=== PATIENT | male | born 1970 | race Caucasian/White ===

== ENCOUNTER → 2017-11-18 08:54 | Outpatient (CLI) | payer SELFPAY ==
[2017-11-18 11:01] LABS: Cholesterol 154 mg/dL (200); Glucose 78 mg/dL (74-106); High Density Lipoprotein 45 mg/dL; Triglycerides 55 mg/dL; Very Low Density Lipoprotein 11 mg/dL (5-40)
== END ==
PROVIDERS: Family Provider Family Medicine; PCP Family Medicine; Visit Provider Family Medicine
DX: Z00.00 Encounter for general adult medical examination without abnormal findings (principal)
CPT/HCPCS: 36415; 80061; 80076; 82947

== ENCOUNTER → 2017-11-18 08:58 | Outpatient (CLI) | payer SELFPAY ==
[2017-11-18 11:05] LABS: AST(SGOT) 17 U/L (15-37); Alanine Aminotransfer ALT/SGPT 20 U/L (16-61); Albumin, Serum 3.6 g/dL (3.2-5.0); Alkaline Phosphatase 73 U/L (45-117); Bilirubin, Direct 0.17 mg/dL (0.00-0.30); Globulin 4.5 g/dL (2.2-4.2); Protein, Total 8.1 g/dL (6.4-8.2)
== END ==
PROVIDERS: Nurse Practitioner Family; Family Provider Family Medicine; PCP Family Medicine; Visit Provider Internal Medicine Cardiovascular Disease
DX: Z00.00 Encounter for general adult medical examination without abnormal findings (principal)
CPT/HCPCS: 36415; 80076

== ENCOUNTER → 2017-12-06 09:26 | Outpatient (CLI) | payer SELFPAY ==
[2017-12-06 11:42] LABS: Cholesterol 144 mg/dL (200); Glucose 78 mg/dL (74-106); High Density Lipoprotein 55 mg/dL; Triglycerides 42 mg/dL; Very Low Density Lipoprotein 8 mg/dL (5-40)
== END ==
PROVIDERS: Family Provider Family Medicine; PCP Family Medicine; Visit Provider Family Medicine
DX: Z00.00 Encounter for general adult medical examination without abnormal findings (principal)
CPT/HCPCS: 80061; 82947

== ENCOUNTER 2023-05-08 22:37 | Observation (INO) | payer OTHER, SELFPAY ==
[2023-05-08 22:38] VITALS: BP 178/91; PULSE 78; RESP 19; TEMP 36.5; O2SAT 100; BMI 32.1
--- NOTE | 2023-05-08 22:48 | CT_ITS ---
INDICATION: pain EXAMINATION: CT ABDOMEN AND PELVIS WITH CONTRAST - CT Abdomen And Pelvis W/ Contrast Injection TECHNIQUE: Helically acquired images were obtained of the abdomen and pelvis following IV contrast. A radiation dose optimization technique was used for this scan. IV Contrast dosage and agent: 100 cc [id number]-300 Oral contrast: None. COMPARISON: None. FINDINGS: Basilar atelectasis or scarring. Mild periportal edema which could be secondary to hydration. There is gallbladder thickening, non-specific. Splenic granulomas. Pancreas, adrenal glands and kidneys show no acute abnormality. No hydronephrosis. No ureteral stone. No bladder stone. Prostate size is normal. Colon is collapsed. No obvious inflammatory change. Appendix normal. Nonspecific small bowel fluid without obstruction. No aortic aneurysmal dilatation is present. Normal appearing stomach. Small nonspecific retroperitoneal nodes do not meet pathologic size criteria. No acute bony pathology is appreciated. CT/Abdomen/Pelvis W IV Cont ONLY IMPRESSION: Nonspecific gallbladder wall thickening and periportal edema. Consider gallbladder ultrasound. No significant abnormality detected otherwise. Electronically Signed: Luisito Blanchard MD at 23:34 EDT ,
--- NOTE | 2023-05-08 22:51 | EX.ED.DYSGE1 ---
HPI History of Present Illness Chief Complaint: Abd Pain Narrative Narrative: Patient presents with a few hour history of epigastric pain, it is somewhat colicky and at times severe. He does not have a prior history of this other than in the past week he has had few episodes that are similar that resolved after 30 minutes. He has no prior surgery on his abdomen. No recent fevers or chills. No diarrhea no constipation. He has some nausea but no vomiting. PFSH [facility] Medical History (Updated 05/09/23 @ 00:[address] Theodore Catalan MD) Angina pectoris Atherosclerotic heart disease of [place] coronary artery without angina pectoris CAD (coronary artery disease) Family history of early CAD Hyperlipidemia clinical rn use of drug Obesity (BMI 30.0-34.9) Home Medications aspirin 81 mg chewable tablet 81 mg PO DAILY@0800 ##30 05/05/17 [Rx Last Taken Unknown] nitroglycerin 0.4 mg sublingual tablet 0.4 mg sublingual Q5M PRN Chest Pain #30 tabs 05/05/17 [Rx Last Taken Unknown] Allergy/AdvReac Type Severity Reaction Status Date / Time No Known Allergies Allergy Verified 05/08/23 22:38 Family History Mother CAD (coronary artery disease) S/P CABG x 3, Onset Age: 47 History of coronary artery stent placement multiple Grandfather , Age 54 of [place], first [place] age 42 CAD (coronary artery disease) Myocardial infarction Other Heart disease Surgical History History of left heart catheterization Social History (Updated 12/13/17 @ 12:[address] Joe Zimmerman MD) Smoking Status: Never smoker ROS ROS ED ROS Narrative Past medical history: None Medications: None Review of systems: All systems negative except as indicated General: No fever Eyes: No visual changes ENT: No upper airway congestion, normal voice Neck: No neck pain Cardiovascular: No chest pain Respiratory: No shortness of breath or cough Gastrointestinal: Abdominal pain as in HPI Genitourinary: No dysuria Musculoskeletal: Denies myalgias no difficulty with ambulation Skin: No rash Neurological: No memory loss, confusion or any focal weakness EXAM Physical Exam Narrative Exam Narrative: Physical exam General: Patient appears in distress Head: Normocephalic, Atraumatic Eyes: Conjunctiva not pale ENT: Slightly dry mucous membranes Neck: Supple, Nontender, No lymphadenopathy Cardiovascular: Regular rate, Regular rhythm Respiratory: No distress, CTA bilaterally Abdomen: Soft, mostly epigastric tenderness without any guarding or rebound. No significant right upper quadrant pain and negative Espinoza's. No significant lower abdominal pain [facility]: Nontender, Normal Inspection. Negative for: CVA tenderness Extremities: Nontender, No edema Skin: Normal color, No rash Const Vital Signs: 05/08/23 22:38 05/08/23 23:37 Temperature 97.7 F L Temperature Source Oral Pulse Rate 78 71 Respiratory Rate 19 H 11 L Blood Pressure 178/91 H 166/100 H Blood Pressure Mean 120 122 Pulse Ox 100 96 Oxygen Delivery Method Room Air MDM MDM MDM Narrative Medical decision making narrative: EKG: Sinus rhythm with a rate of 71. Normal [place] and QTc intervals. No ischemic changes. Interpreted by emergency doctor Telemetry: Sinus rhythm with a rate in the 70s without ectopy. Patient has an unremarkable blood work and LFTs. However he does have pain in the epigastrium and right upper quadrant. He did have colicky pain. He needed IV analgesics. CT of the abdomen and pelvis with IV contrast reveals gallbladder wall thickening and some inflammatory changes. My worry is for possible early cholecystitis. I talked to the surgeon who will observe him overnight and get an ultrasound since its midnight and I do not have ultrasound coverage. Otherwise patient has been stable, slightly hypertensive but he is still in pain although he does not require analgesia at this time. Lab Data Labs: Laboratory Results - last 24 hr 05/08/23 23:00 WBC 7.0 RBC 5.01 Hgb 14.8 Hct 43.5 MCV 86.8 MCH 29.5 MCHC 34.0 RDW Std Deviation 41.4 RDW Coeff of Alysia 13.2 Plt Count 123 L MPV 10.8 Immature Gran % (Auto) 0.300 Neut % (Auto) 74.1 H Lymph % (Auto) 17.6 L [place] % (Auto) 7.2 Eos % (Auto) 0.7 Baso % (Auto) 0.1 Absolute Neuts (auto) 5.2 Absolute Lymphs (auto) 1.23 Nucleated RBC % 0 Sodium 140 Potassium 3.4 L Chloride 109 H Carbon Dioxide 24.0 Anion Gap 7 BUN 17 Creatinine 1.29 Estim Creat Clear Calc 65.46 Est GFR (MDRD) Af Amer 75 Est GFR (MDRD) Non-Af 62 BUN/Creatinine Ratio 13.2 Glucose 132 H Calcium 8.5 Total Bilirubin 0.60 AST 21 ALT 21 Alkaline Phosphatase 65 Total Protein 7.5 Albumin 3.6 Globulin 3.9 Albumin/Globulin Ratio 0.9 Lipase 25 Radiography Diagnostic Testing: Clinical Impression(s) from Imaging Studies Abdomen/Pelvis CT 05/08/23 22:48 IMPRESSION: Nonspecific gallbladder wall thickening and periportal edema. Consider gallbladder ultrasound. No significant abnormality detected otherwise. Electronically Signed: Luisito Blanchard MD at 23:34 EDT , Discharge Plan Triage Chief Complaint: Abd Pain ED Provider: Theodore Catalan Dx/Rx/DC Orders Clinical Impression: Abdominal pain, Nausea, Disease of gallbladder Prescriptions: No Action nitroglycerin 0.4 MG tablet 0.4 mg SUBLINGUAL Q5M PRN (Reason: Chest Pain) Qty: 30 0RF aspirin 81 MG tablet,chewable 81 mg PO DAILY@0800 Qty: 30 0RF Primary Care Provider: Jonathon Nieves Referrals: Henry Noriega MD [Non-Staff] -
[2023-05-08] MEDS: Ondansetron 4 MG/2 ML Vial IV (22:52)
[2023-05-08] MEDS: 0.9% Normal Saline 1,000 ML 1000 ML IV (22:57)
[2023-05-08] MEDS: Morphine 4 MG/ML Syringe IV (22:57)
[2023-05-08 23:19] LABS: Absolute Lymphocyte Count 1.23 X10^3/uL (0.83-4.51); Absolute Neutrophil Count 5.2 X10^3/uL (2.0-7.7); Basophil# 0.01 X10^3/uL; Basophil% 0.1 % (0-1); Eosinophil# 0.05 X10^3/uL; Eosinophils% 0.7 % (0-5); Hematocrit 43.5 % (40-54); Hemoglobin 14.8 g/dL (13.0-16.5); Lymphocyte # 1.23 X10^3/ul (0.83-4.51); Lymphocyte % 17.6 % (19-41); Mean Corpuscular Hgb 29.5 pg (27.0-32.0); Mean Corpuscular Volume 86.8 fL (80-94); Mean Platelet Vol. 10.8 fl (6.2-12.0); Monocyte% 7.2 % (0-10); NRBC Flagged by Analyzer 0 % (0-5); Neutrophil # 5.18 X10^3/uL (2.7-7.7); Neutrophil % 74.1 % (47-70); Platelet Count 123 K/mm3 (150-450); RBC Distribution Width CV 13.2 % (11.6-14.6); RBC Distribution Width SD 41.4 fl (35.1-43.9); Red Blood Count 5.01 M/mm3 (4.6-6.2)
[2023-05-08 23:37] VITALS: BP 166/100; PULSE 71; RESP 11; O2SAT 96
[2023-05-08 23:44] LABS: ALB/GLOB Ratio 0.9 RATIO (0.9-2.4); AST(SGOT) 21 U/L (15-37); Alanine Aminotransfer ALT/SGPT 21 U/L (16-61); Albumin, Serum 3.6 g/dL (3.2-5.0); Alkaline Phosphatase 65 U/L (45-117); Anion Gap 7 (5-15); BUN 17 mg/dL (7-18); BUN/Creat Ratio 13.2 RATIO (10-20); Calcium,Total 8.5 mg/dL (8.5-10.1); Chloride 109 mmol/L (98-107); Creatinine, Serum 1.29 mg/dL (0.70-1.30); EST Glomerular Filtration Rate 62 mL/min (>60); Est Glom Filt Rate - Afr Amer 75 mL/min (>60); Estimated Creatinine Clearance 65.46 ml/min; Globulin 3.9 g/dL (2.2-4.2); Glucose 132 mg/dL (74-106); Lipase 25 U/L (13-75); Potassium 3.4 mmol/L (3.5-5.1); Protein, Total 7.5 g/dL (6.4-8.2); Sodium Level 140 mmol/L (136-145)
[2023-05-08 23:56] LABS: Bacteria 0 SEEN /hpf (None Seen); Mucous, Urine 0 SEEN /hpf (<or=2+); Red Blood Cells-Urine 0 SEEN /hpf (0-5); Squamous Epithelial Cells - UA 0 SEEN /hpf (0-5); White Blood Cells 0 SEEN /hpf (0-5)
[2023-05-09 00:06] LABS: Color, Urine Yellow (Yellow); Glucose, Dipstick Normal (Normal); Ketone-Dipstick Negative (Negative); Leukocyte Esterase-Dipstick Negative /ul (Negative); Nitrite-Dipstick Negative (Negative); Occult Blood-Urine Negative /ul (Negative); Protein-Dipstick 30 mg/dl (Negative); Specific Gravity, Urine 1.015 (1.002-1.030); Urine Bilirubin Dipstick Negative (Negative); Urine Clarity Clear (Clear); Urine Urobilinogen Normal (Normal); Urine pH 6.5 (5.0 - 8.0)
[2023-05-09 00:29] VITALS: BP 155/92; PULSE 72; RESP 20; TEMP 36.4; O2SAT 96
[2023-05-09 00:50] VITALS: BP 159/98; PULSE 77; RESP 16; TEMP 36.6; O2SAT 97; BMI 31.6
[2023-05-09] MEDS: 0.9% Normal Saline 1,000 ML 125 ML IV ×2 (01:16→09:48)
[2023-05-09 05:09] VITALS: BP 127/84; PULSE 63; RESP 16; TEMP 36.6; O2SAT 96
--- NOTE | 2023-05-09 07:00 | US_ITS ---
INDICATION: Right upper quadrant pain EXAMINATION: Ultrasound US Abdomen Limited (quadrant) TECHNIQUE: Gaming scale and color doppler imaging was performed of the right upper quadrant. COMPARISON: CT scan of the abdomen and pelvis of 05/08/2023. FINDINGS: LIVER: There is normal echotexture. Patent portal vein with normal hepatopedal flow. No focal hepatic lesion. There is no free fluid. GALLBLADDER AND BILIARY TREE: No evidence of gallstones. Focal thickening of the anterior wall of the gallbladder measuring up to 7 mm. Mild sludge seen in the gallbladder. The proximal common bile duct measures 3.7, which is within normal limits for the patient''s age. Sonographic Espinoza''s sign: Negative. PANCREAS: No focal abnormality is demonstrated in the pancreas. No pancreatic ductal dilatation. RIGHT KIDNEY: The right kidney measures 10.4 cm in length. The cortex measures 1.2 cm. No evidence of hydronephrosis. US/Gallbladder IMPRESSION: Thickening of the gallbladder wall without evidence of gallstones or biliary dilatation. Nuclear medicine biliary scan might be of value if clinically indicated. Electronically Signed: Danilo Kapoor MD at 10:12 EDT ,
--- NOTE | 2023-05-09 08:35 | PCM.HP.STD ---
HPI - General General Date of Admission: 05/09/23 Date of Service: 05/09/23 Chief Complaint: Right upper quadrant abdominal pain HPI Narrative JAMARCUS CAREY, is a 52 M who presents with a 1 day history onset of upper abdominal pain, worse in the right upper quadrant into his back. Patient notes he has had 2 other previous gallbladder attack within the last 2 weeks. Patient states he is unable to recall what type of a meal he had prior to these attacks. He notes that the pain was approximately 1 hour after eating. He states that each attack has progressively become worse. He noted this recent episode demonstrated the worse discomfort/pain. He stated he had nausea associated with the pain. Patient had a CT scan of the ab/pel in the ED which demonstrated gallbladder wall thickening and periportal edema. Gallbladder ultrasound is being recommended. Patient's labs were remarkable for potassium of 3.4 yesterday. Patient also notes a history of angina. He has followed with Dr. Key in the past. He had a cardiac cath in 2017 which demonstrated 50% stenosis of prox LAD. His last visit with cardiology was in 2018. At that time the patient was recommended to be seen on an as needed basis as the patient had made some lifestyle changes. Patient does take an 81 mg aspirin. Patient denies any recent chest pain. He states his current symptoms are not similar to the angina he had previously. 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 Obesity (BMI 30.0-34.9) Home Medications aspirin 81 mg chewable tablet 81 mg PO DAILY@0800 ##30 05/05/17 [Rx Last Taken Unknown] nitroglycerin 0.4 mg sublingual tablet 0.4 mg sublingual Q5M PRN Chest Pain #30 tabs 05/05/17 [Rx Last Taken Unknown] Allergy/AdvReac Type Severity Reaction Status Date / Time No Known Allergies Allergy Verified 05/08/23 22:38 Family History Mother CAD (coronary artery disease) S/P CABG x 3, Onset Age: 47 History of coronary artery stent placement multiple Grandfather , Age 54 of [place], first [place] age 42 CAD (coronary artery disease) Myocardial infarction Other Heart disease Surgical History History of left heart catheterization Social History (Updated 12/13/17 @ 12:[address] Joe Zimmerman MD) Smoking Status: Never smoker ROS Constitutional Constitutional: Reports change in weight Eyes Eyes: Reports systems reviewed and no addt'l complaints, except as documented ENT HEENT: Reports systems reviewed and no addt'l complaints, except as documented Cardiovascular Cardiovascular: Reports systems reviewed and no addt'l complaints, except as documented Respiratory/Chest Respiratory/Chest: Reports systems reviewed and no addt'l complaints, except as documented Gastrointestinal Gastrointestinal: Reports systems reviewed and no addt'l complaints, except as documented Genitourinary Genitourinary: Reports systems reviewed and no addt'l complaints, except as documented Musculoskeletal Musculoskeletal: Reports systems reviewed and no addt'l complaints, except as documented Integumentary Integumentary: Reports systems reviewed and no addt'l complaints, except as documented Neurologic Neurologic: Reports systems reviewed and no addt'l complaints, except as documented Psychiatric Psychiatric: Reports systems reviewed and no addt'l complaints, except as documented Endocrine Endocrinology: Reports systems reviewed and no addt'l complaints, except as documented Hematologic/Lymphatic Hematologic/Lymphatic: Reports systems reviewed and no addt'l complaints, except as documented Allergic/Immunologic Allergic/Immunologic: Reports systems reviewed and no addt'l complaints, except as documented Vital Signs Vital Signs Vital Signs: 05/08/23 22:38 05/08/23 23:37 05/09/23 00:29 Temperature 97.7 F L 97.6 F L Temperature Source Oral Temporal Pulse Rate 78 71 72 Respiratory Rate 19 H 11 L 20 H Respiratory Effort Respiratory Depth Respiratory Pattern Blood Pressure 178/91 H 166/100 H 155/92 H Blood Pressure Mean 120 122 113 Blood Pressure Source Blood Pressure Position Blood Pressure Location Pulse Ox 100 96 96 Oxygen Delivery Method Room Air Room Air 05/09/23 00:50 05/09/23 01:00 05/09/23 05:09 Temperature 97.8 F 97.8 F Temperature Source Temporal Temporal Pulse Rate 77 63 Respiratory Rate 16 16 Respiratory Effort Normal Non-Labored Respiratory Depth Normal Respiratory Pattern Normal Blood Pressure 159/98 H 127/84 H Blood Pressure Mean 118 98 Blood Pressure Source Monitor Monitor Blood Pressure Position Semi-Fowlers Semi-Fowlers Blood Pressure Location Right Forearm Right Forearm Pulse Ox 97 96 Oxygen Delivery Method Room Air Room Air Room Air Weight Weight: 214 lb 1.6 oz Body Mass Index (BMI) 31.6 Physical Exam Const alert, oriented x3 and no apparent distress HEENT normocephalic Eyes PERRL Neck full ROM Lymph Lymphatic: no lymphadenopathy noted Chest inspection of chest normal Resp normal respiratory effort and clear to auscultation bilaterally Cardio regular rate and regular rhythm GI normal to inspection, nondistended, normoactive bowel sounds no CVA tenderness Back/Spine no CVA tenderness Extremity normal to inspection Skin no rashes or lesions noted Neuro no focal motor deficits and no sensory deficits noted Psych mental status grossly normal and thought process normal Results Lab / Micro Data 05/08/23 23:00 05/08/23 23:00 Labs: Laboratory Results - last 24 hr 05/08/23 23:00: WBC 7.0, RBC 5.01, Hgb 14.8, Hct 43.5, MCV 86.8, MCH 29.5, MCHC 34.0, RDW Std Deviation 41.4, RDW Coeff of Alysia 13.2, Plt Count 123 L, MPV 10.8, Immature Gran % (Auto) 0.300, Neut % (Auto) 74.1 H, Lymph % (Auto) 17.6 L, [place] % (Auto) 7.2, Eos % (Auto) 0.7, Baso % (Auto) 0.1, Absolute Neuts (auto) 5.2, Absolute Lymphs (auto) 1.23, Nucleated RBC % 0, Sodium 140, Potassium 3.4 L, Chloride 109 H, Carbon Dioxide 24.0, Anion Gap 7, BUN 17, Creatinine 1.29, Estim Creat Clear Calc 65.46, Est GFR (MDRD) Af Amer 75, Est GFR (MDRD) Non-Af 62, BUN/Creatinine Ratio 13.2, Glucose 132 H, Calcium 8.5, Total Bilirubin 0.60, AST 21, ALT 21, Alkaline Phosphatase 65, Total Protein 7.5, Albumin 3.6, Globulin 3.9, Albumin/Globulin Ratio 0.9, Lipase 25 05/08/23 23:40: Urine Color Yellow, Urine Clarity Clear, Urine pH 6.5, Ur Specific [place] 1.015, Urine Protein 30 H, Urine Glucose (UA) Normal, Urine Ketones Negative, Urine Occult Blood Negative, Urine Nitrite Negative, Urine Bilirubin Negative, Urine Urobilinogen Normal, Ur Leukocyte Esterase Negative, Urine RBC 0 SEEN, Urine WBC 0 SEEN, Ur Squamous Epith Cells 0 SEEN, Urine Bacteria 0 SEEN, Urine Mucus 0 SEEN Radiology Impression Abdomen/Pelvis CT 05/08/23 22:48 IMPRESSION: Nonspecific gallbladder wall thickening and periportal edema. Consider gallbladder ultrasound. No significant abnormality detected otherwise. Electronically Signed: Luisito Blanchard MD at 23:34 EDT , Assessment & Plan Assessment/Plan (1) Abdominal pain: QUALIFIERS: Abdominal location: right upper quadrant Qualified Code(s): R10.11 - Right upper quadrant pain PLAN: I am seeing this patient in conjunction with Dr. Cardenas. I have reviewed this patient with Dr. Cardenas and he has independently evaluated this patient. Patient presented with right upper quadrant pain radiating into his back. CT scan of the ab/pel shows nonspecific gallbladder wall thickening. Patient's presenting symptoms are consistent with biliary colic. Recommend obtaining a RUQ u/s today to determine acute cholecystitis vs. chronic cholecystitis. Also if the patient has cholelithiasis. Patient's lab work is unremarkable at this time. Following results of the ultrasound, will determine if the patient will have a cholecystectomy during this hospitalization versus as an outpatient. Patient has had the opportunity to ask and have questions answered. Patient verbally understands and agrees with the plan. Thank you for allowing us to participate in this patient's care. Charges/Coding Visit Charges OBSV E&M: 04431 Observ/hosp same date L1
[2023-05-09] MEDS: Potassium Chloride 10mEq/100mL 10 MEQ/100 ML IV.SOLN. 100 MEQ IV BOLUS ×2 (09:44→11:08)
[2023-05-09 09:50] VITALS: BP 131/80; PULSE 62; RESP 18; TEMP 36.9; O2SAT 97
[2023-05-09 10:15] LABS: Absolute Lymphocyte Count 1.04 X10^3/uL (0.83-4.51); Absolute Neutrophil Count 2.6 X10^3/uL (2.0-7.7); Eosinophil# 0.02 X10^3/uL; Eosinophils% 0.5 % (0-5); Hematocrit 43.1 % (40-54); Hemoglobin 14.2 g/dL (13.0-16.5); Lymphocyte # 1.04 X10^3/ul (0.83-4.51); Lymphocyte % 25.3 % (19-41); Mean Corp Hgb Conc 32.9 g/dL (32-36); Mean Corpuscular Hgb 29.4 pg (27.0-32.0); Mean Corpuscular Volume 89.2 fL (80-94); Mean Platelet Vol. 10.8 fl (6.2-12.0); Monocyte# 0.44 X10^3/uL; Monocyte% 10.7 % (0-10); NRBC Flagged by Analyzer 0 % (0-5); Neutrophil % 63.3 % (47-70); Platelet Count 112 K/mm3 (150-450); RBC Distribution Width CV 13.5 % (11.6-14.6); RBC Distribution Width SD 44.3 fl (35.1-43.9); Red Blood Count 4.83 M/mm3 (4.6-6.2); White Blood Count 4.1 K/mm3 (4.4-11.0)
[2023-05-09 11:16] LABS: ALB/GLOB Ratio 0.9 RATIO (0.9-2.4); AST(SGOT) 177 U/L (15-37); Alanine Aminotransfer ALT/SGPT 194 U/L (16-61); Albumin, Serum 3.2 g/dL (3.2-5.0); Alkaline Phosphatase 80 U/L (45-117); Anion Gap 4 (5-15); BUN 13 mg/dL (7-18); Calcium,Total 8.1 mg/dL (8.5-10.1); Chloride 111 mmol/L (98-107); Creatinine, Serum 1.08 mg/dL (0.70-1.30); EST Glomerular Filtration Rate 76 mL/min (>60); Est Glom Filt Rate - Afr Amer 91 mL/min (>60); Estimated Creatinine Clearance 78.19 ml/min; Globulin 3.7 g/dL (2.2-4.2); Glucose 85 mg/dL (74-106); Protein, Total 6.9 g/dL (6.4-8.2); Sodium Level 140 mmol/L (136-145)
[2023-05-09] MEDS: Potassium Chloride Oral Tablet 20 MEQ PO (11:24)
--- NOTE | 2023-05-09 14:07 | PHA.DC.MR.R ---
Pharmacy [place] Med Reconciliation Pharmacy Service has performed discharge medication reconciliation for this patient. The patient's discharge medication list was reviewed for discrepancies and discrepancies were resolved. Medications at Discharge Home Medications aspirin 81 mg chewable tablet 81 mg PO DAILY@0800 ##30 05/05/17 nitroglycerin 0.4 mg sublingual tablet 0.4 mg sublingual Q5M PRN Chest Pain #30 tabs 05/05/17
--- NOTE | 2023-05-09 14:11 | DCINST_ITS ---
Discharge Instructions Diet Discharge Diet: Low fat / Low cholesterol and Bananas, Rice, Applesauce and [place]iller Follow Up Care Please Follow Up With: Montrell Cardenas MD When: Please call [phone] for an appointment after HIDA scan has been completed Test Results: Test results from this visit will be discussed in further detail at your follow- up appointment, if applicable. Discharge Plan Admission Admit Date/Time: 05/09/23 00:05 Primary Reason for Your Visit: Biliary colic Attending Provider: Montrell Cardenas Primary Care Provider: Jonathon Nieves Instructions Additional Instructions / Restrictions: Recommend HIDA scan as an outpatient to test the function of the gallbladder. Central registration will contact you to schedule a date and time for the test. You will then need to schedule a follow-up appointment with Dr. Cardenas as an outpatient to review the test and discuss treatment plan. We recommend eating a low fat diet and BRAT diet as an outpatient until you follow-up with Dr. Cardenas. We recommend you write down a food diary with all of the foods you consume from the time of discharge until your follow-up with Dr. Cardenas. Discharge Orders/Prescriptions Prescriptions: Continued nitroglycerin 0.4 MG tablet 0.4 mg SUBLINGUAL Q5M PRN (Reason: Chest Pain) Qty: 30 0RF aspirin 81 MG tablet,chewable 81 mg PO DAILY@0800 Qty: 30 0RF Referrals / Follow Up: Jonathon Nieves MD [Primary Care Provider] - Montrell Cardenas MD [Med Staff - Active Staff] - (Please contact our office to schedule an appointment following your HIDA scan) Henry Noriega MD [Non-Staff] - Disposition Disposition (needs filled in before D/C Order can be placed): Home, Self Care
[2023-05-09 14:30] VITALS: BP 136/75; PULSE 71; RESP 18; TEMP 37.1; O2SAT 99
== END 2023-05-09 15:12 | disposition home or self-care (01) ==
LOC: ED 23:23 → MS3 05-09 00:26
PROVIDERS: Physician Assistant; Admitting Provider Surgery; Emergency Provider Emergency Medicine; PCP Family Medicine; Visit Provider Surgery
DX: K82.8 Other specified diseases of gallbladder (principal); I25.10 Atherosclerotic heart disease of native coronary artery without angina pectoris; Z79.82 Long term (current) use of aspirin; E78.5 Hyperlipidemia, unspecified; R10.11 Right upper quadrant pain
CPT/HCPCS: 36415; 74177; 76705; 80053; 81001; 83690; 85025; 93005; 96361; 96365; 96366; 96367; 96375; 99221; 99285; J7030; Q9967; A4216; G0378; J2405

== ENCOUNTER → 2023-05-19 | Outpatient (CLI) | payer SELFPAY ==
--- NOTE | 2023-05-19 09:44 | NM_ITS ---
CLINICAL: 52-year-old female with history of right upper quadrant abdominal pain. RADIONUCLIDE HEPATOBILIARY SCINTIGRAPHY COMPARISON: Gallbladder ultrasound report 05/09/2023, CT of the abdomen-pelvis report 05/08/2023 FINDINGS: Following the intravenous administration of 5.6 mCi of 99m Tc Mebrofenin, hepatobiliary images reveal: 1. Relatively prompt and homogeneous radiopharmaceutical concentration is noted by a normal sized liver. No parenchymal defects are identified. 2. Gallbladder activity is identified at 15 minutes post radiopharmaceutical administration. 3. Small intestinal tract is not visualized during 60 minutes of pre-CCK sequential imaging. Small bowel activity is identified following the administration of cholecystokinin. 4. Washout of the radiopharmaceutical by the hepatic parenchyma appears qualitatively normal. Cholecystokinin (0.02 ug/kg) was administered intravenously over a 30-minute period. The post CCK gallbladder ejection fraction calculated at 20 minutes following Cholecystokinin administration was noted to be 84.0 % (normal greater than 35%). During 30 minutes of post CCK imaging, there is no scintigraphic evidence of reflux of the radiotracer into the common hepatic duct or refilling of the gallbladder. NM/Hepatobilliary Img w/Pharm Int IMPRESSION: 1. NORMAL 99m Tc Mebrofenin hepatobiliary imaging examination with Cholecystokinin. A. A gallbladder ejection fraction calculated to be greater than 35% following the administration of Cholecystokinin makes the probability of functional hepatobiliary disease (gallbladder and/or sphincter of Oddi dyskinesia) and/or organic hepatobiliary disease (chronic acalculous cholecystitis and/or cystic duct syndrome) to be low. (Simone Shipman et al, Journal of Nuclear Medicine 32:1695, 1991). Electronically Signed: Yobany Manning DO at 22:48 EDT ,
== END | disposition home or self-care (01) ==
LOC: NM 09:41
PROVIDERS: PCP Family Medicine; Referring Provider Physician Assistant; Visit Provider Physician Assistant
DX: R10.11 Right upper quadrant pain (principal)
CPT/HCPCS: 78227; A9537; J2805

== ENCOUNTER → 2023-05-26 | Outpatient (CLI) | payer SELFPAY ==
[2023-05-26 17:30] LABS: ALB/GLOB Ratio 0.8 RATIO (0.9-2.4); AST(SGOT) 16 U/L (15-37); Alanine Aminotransfer ALT/SGPT 18 U/L (16-61); Albumin, Serum 3.6 g/dL (3.2-5.0); Alkaline Phosphatase 69 U/L (45-117); Anion Gap 3 (5-15); BUN 21 mg/dL (7-18); BUN/Creat Ratio 16.3 RATIO (10-20); Calcium,Total 8.4 mg/dL (8.5-10.1); Chloride 108 mmol/L (98-107); Creatinine, Serum 1.29 mg/dL (0.70-1.30); EST Glomerular Filtration Rate 62 mL/min (>60); Est Glom Filt Rate - Afr Amer 75 mL/min (>60); Globulin 4.3 g/dL (2.2-4.2); Glucose 87 mg/dL (74-106); Potassium 3.9 mmol/L (3.5-5.1); Protein, Total 7.9 g/dL (6.4-8.2); Sodium Level 138 mmol/L (136-145)
== END | disposition home or self-care (01) ==
PROVIDERS: PCP Family Medicine; Referring Provider Surgery; Visit Provider Surgery
DX: K82.9 Disease of gallbladder, unspecified (principal)
CPT/HCPCS: 36415; 80053

== ENCOUNTER → 2025-09-04 | Outpatient (CLI) | payer SELFPAY ==
--- NOTE | 2025-09-04 08:09 | ECHOD_ITS ---
Reason For Study Reason For Study: CORONARY ARTERY DISEASE Procedure This was a 2D Doppler, Color Flow transthoracic echocardiogram. Myocardial strain analysis was performed in this exam to aid in the assessment of cardiac function. The patient is in sinus rhythm. Exam performed in department. Left Ventricle Normal LV size. The global longitudinal strain = -15.4% (abnormal). Left ventricular ejection fraction by Peñaloza's biplane and strain: 49% E/e' suggest normal filling pressures. Mid to distal anterior wall hypokinesis. Otherwise mild global hypokinesis. Right Ventricle Normal right ventricle. Normal systolic function. RVSP estimated at 30 to 35 mmHg. Atria The left and right atria are normal. Right atrial pressure estimated at: 8 mmHg. Mitral Valve Normal mitral valve. Trace mitral regurgitation. No mitral stenosis. Tricuspid Valve Normal tricuspid valve. No tricuspid stenosis. Trace tricuspid regurgitation. Aortic Valve Trileaflet aortic valve. No hemodynamically aortic stenosis. No aortic regurgitation. Pulmonic Valve Normal pulmonic valve. Mild pulmonic regurgitation. No pulmonic stenosis. Great Vessels Normal sized aortic root. Normal ascending aorta. Pericardium/Pleural No pericardial effusion. MMode/2D Measurements & Calculations LVIDd: 5.5 cm IVSd: 1.0 cm LVOT diam: 2.2 cm LVIDs: 3.7 cm LVPWd: 0.91 cm LVOT area: 3.8 cm2 RVDd: 3.7 cm FS: 32.8 % Ao root diam: 3.0 cm asc Aorta Diam: 3.0 cm LAV(MOD- bp): 42.8 ml LAV(MOD- bp) Indexed: 20.3 ml/m2 LAV(MOD- sp2): 37.7 ml LAV(MOD- sp4): 42.2 ml LVAd ap4: 28.2 cm2 LVAd ap2: 30.3 cm2 EDV(MOD- bp): 87.8 ml LVLd ap4: 8.2 cm LVLd ap2: 8.8 cm ESV(MOD- bp): 44.0 ml EDV(MOD-sp4): 80.5 ml EDV(MOD-sp2): 89.7 ml EF(MOD- bp): 49.9 % EDV(sp4-el): 82.9 ml EDV(sp2-el): 87.9 ml LVAs ap4: 18.9 cm2 LVAs ap2: 19.1 cm2 LVLs ap4: 7.1 cm LVLs ap2: 7.7 cm ESV(MOD-sp4): 42.3 ml ESV(MOD-sp2): 42.7 ml ESV(sp4-el): 42.3 ml ESV(sp2-el): 40.1 ml EF(MOD-sp4): 47.5 % EF(MOD-sp2): 52.4 % EF(sp4-el): 48.9 % SV(MOD-sp4): 38.2 ml SV(MOD-sp2): 47.0 ml SV(sp4- el): 40.6 ml SI(MOD-sp4): 18.1 ml/m2 SI(MOD-sp2): 22.3 ml/m2 Ao sinus diam: 3.[address] Junction: 2.5 cm LA A4 area: 17.3 cm2 LA dimension(2D): 3.9 cm TAPSE: 2.0 cm RA A4 area: 17.9 cm2 Time Measurements MV dec time: 0.19 sec Doppler Measurements & Calculations MV E max akin: 57.3 cm/sec Lat Peak E' Akin: 14.3 cm/sec Med Peak E' Akin: 12.5 cm/sec MV A max akin: 54.9 cm/sec E/E' lat: 4.0 E/E' med: 4.6 MV E/A: 1.0 MV dec slope: 308.4 cm/sec2 Ao V2 max: 107.4 cm/sec LV V1 max: 84.0 cm/sec Ao max P.6 mmHg LV V1 max P.8 mmHg Ao V2 mean: 73.7 cm/sec LV V1 mean P.6 mmHg Ao mean P.5 mmHg LV V1 mean: 59.4 cm/sec Ao V2 VTI: 24.8 cm LV V1 VTI: 19.3 cm AV (velocity ratio): 0.78 ALEJANDRO(I,D): 2.9 cm2 ALEJANDRO(V,D): 3.0 cm2 SV(LVOT): 73.1 ml PA V2 max: 107.5 cm/sec PI end-d akin: 83.5 cm/sec TR max aikn: 255.8 cm/sec TR max P.2 mmHg ECHO/Echo Complete Interpretation Summary Left ventricular systolic function is mildly reduced with EF: 49% Mid to distal anterior wall hypokinesis E/e' suggest normal left ventricular filling pressure Normal right ventricular systolic function No hemodynamically significant valvular disease Ordering Physician: Valdemar Gasca Referring Physician: GONZALO AGUILERA Performed By: Aixa Longoria RDCS
== END | disposition home or self-care (01) ==
PROVIDERS: PCP Family Medicine; Referring Provider Student in an Organized Health Care Education/Training Program; Visit Provider Student in an Organized Health Care Education/Training Program
DX: R94.39 Abnormal result of other cardiovascular function study (principal); R06.09 Other forms of dyspnea
CPT/HCPCS: 93306

== ENCOUNTER → 2025-09-05 | Day surgery (SDC) | payer SELFPAY ==
--- NOTE | 2025-08-28 10:01 | PCM.HP.BLA ---
History and Physical Date of Admission: 09/06/25 Patient is a 54-year-old male with past medical history of coronary artery disease (coronary angiogram in 04/2017: 50% stenosis in LAD, all other arteries normal). Patient has been having worsening dyspnea on exertion. Patient had exercise SPECT that showed ischemic EKG changes, as well as possible anterior and inferior ischemia. Patient also has a history of premature coronary artery disease in mother, who had a three-vessel CABG at age 47, and grandfather who had first [place] at age 42 Patient is currently on aspirin 81 mg daily. Patient is not on statin. 07/2025 LDL: 133. Patient seen today companied by his . Patient admits worsening dyspnea on exertion over the last year. He is a runner, and has noticed that his mileage ability has significantly decreased. As of a couple years ago he was able to run 10 miles a week. At this point, he can get through 3 miles but otherwise is unable to advance his mileage due to dyspnea on exertion. He denies chest pain, dizziness, or any other cardiac symptoms. When he is not exerting himself exercising, he has no symptoms and feels his baseline. Vital Signs see EMR Allergies No Known Allergies Allergy (Verified 08/02/25 09:05) Medications see EMR [facility] Medical History (Updated 08/02/25 @ 12:[address] Valdemar Gasca, ) Atherosclerotic heart disease of [place] coronary artery without angina pectoris Hyperlipidemia jail use of drug Angina pectoris CAD (coronary artery disease) Obesity (BMI 30.0-34.9) Family history of early CAD Surgical History History of left heart catheterization Family History Mother CAD (coronary artery disease) S/P CABG x 3, Onset Age: 47 History of coronary artery stent placement multiple Grandfather , Age 54 of [place], first [place] age 42 CAD (coronary artery disease) Myocardial infarction Other Heart disease Social History Smoking Status: Never smoker alcohol intake: never substance use type: does not use caffeine: Yes Type: coffee Number of servings: 1 ROS Const Const: Negative for fatigue or weakness Eyes Eyes: Negative for change in vision ENT ENT: Negative for dizziness or balance problems Cardio Chest Pain: No Palpitations: No Edema: None Resp Respiratory: Negative for SOB with activity, SOB at rest or SOB orthopnea\SOB lying down GI GI: Negative nausea or heartburn Musc Musc: Negative for balance problems Neuro Neuro: Negative for dizziness, lightheadedness, near syncope, syncope or weakness Endo Endo: Negative for fatigue ROS Narrative 14 point review systems reviewed, negative unless specified in HPI above. Cardiology Exam Exam Narrative Gen: A&Ox3, NAD HEENT: Normocephalic/Atraumatic, MMM Neck: Supple, no JVD Pulm: Normal work of breathing, CTA bilaterally with no wheezes or crackles CV: RRR, normal S1/S2, no m/r/g Abd: Soft, NT/ND Extr: Warm to touch, no LE edema, distal pulses intact and symmetric in upper and lower extremities Neuro: No gross focal deficits, normal speech Psych: Normal affect, answers questions appropriately Assessment & Plan Assessment/Plan (1) Chronic coronary artery disease: (2) Abnormal stress test: (3) Dyspnea on exertion: PLAN: Plan (1) Chronic coronary artery disease: Status: Chronic Comment: -Previous 2018 coronary angiography with 50% lesion in LAD - SPECT 06/2025 showing concern for anterior and inferior ischemia, EKG changes positive for ischemia. - Goal LDL less than 55, (currently 122) - Blood pressure goal less than 130/80 (at goal) - EF: 51% on SPECT, will need formal ejection fraction on echo - CCS angina grade: 1 - Resting EKG normal without evidence of prior infarction or ischemia Plan: - Echocardiogram to assess LV function, filling pressures, and to rule out valvular disease - Diagnostic coronary angiography to assess anatomic burden, functionally significant stenoses, and to guide possible revascularization as medically appropriate - Start rosuvastatin 20 mg daily and continue aspirin 81 mg daily -Start amlodipine 2.5 mg daily for stable angina (patient with baseline heart rate ~60, concern for bradycardia/side effects with beta-carly) - Uptitration of antianginals as clinically able - Please ensure echocardiogram is performed before coronary angiogram (2) Abnormal stress test: Status: Chronic Plan: - As above (3) Dyspnea on exertion: Status: Chronic Comment: - Ongoing in the setting of chronic coronary disease - Suspect anginal equivalent, but will need to rule out heart failure/ICM and significant valvular disease Plan: - Echocardiogram ordered
--- NOTE | 2025-09-04 08:37 | RAD_ITS ---
PROCEDURE: CHEST PA AND LATERAL 09/04/2025 REASON FOR EXAM: DYSPNEA, CARDIAC CATH 09/06/25 TECHNIQUE: Procedure Code: RADCXR Modality: DX Procedure: CHEST PA AND LATERAL COMPARISON: None. RAD/Chest PA and Lateral IMPRESSION: Mild thoracic spine degenerative changes are seen. No acute osseous changes evident. No evidence of pulmonary edema. Lungs appear clear of acute disease. No pleural effusion or pneumothorax is evident. No evidence of acute cardiopulmonary disease. Reading Location: [place] [id number]
[2025-09-04 09:31] LABS: Hematocrit 45.4 % (40-54); Hemoglobin 15.6 g/dL (13.0-16.5); Immature Granulocytes Count 0.010 X10^3/uL (0.0-0.0); Mean Corp Hgb Conc 34.4 g/dL (32-36); Mean Corpuscular Volume 89.9 fL (80-94); Mean Platelet Vol. 11.2 fl (6.2-12.0); NRBC Flagged by Analyzer 0 % (0-5); Platelet Count 122 K/mm3 (150-450); RBC Distribution Width CV 13.0 % (11.6-14.6); RBC Distribution Width SD 42.5 fl (35.1-43.9); Red Blood Count 5.05 M/mm3 (4.6-6.2); White Blood Count 4.3 K/mm3 (4.4-11.0)
[2025-09-04 09:38] LABS: Prothrombin Time (Protime)PT. 12.8 SECONDS (11.7-14.9)
[2025-09-04 09:39] LABS: Partial Thromboplast Time 25.7 Seconds (24.1-36.2)
[2025-09-04 10:26] LABS: Anion Gap 9 (5-15); BUN 14 mg/dL (4-19); BUN/Creat Ratio 11.9 RATIO (10-20); Calcium,Total 8.9 mg/dL (7.6-11.0); Carbon Dioxide 26.2 mmol/L (21.0-32.0); Chloride 105 mmol/L (98-108); Glucose 86 mg/dL (70-99); Potassium 4.0 mmol/L (3.3-5.1)
[2025-09-05 07:06] VITALS: BMI 31.0
--- NOTE | 2025-09-05 13:47 | CL.D_ITS ---
Patient Name: JAMARCUS CAREY Study Date: 09/05/2025 Performing: Joe Zimmerman MD Ht: 69 inches 175.26 cm : 1970 Wt: 209.44 lbs 95 kg Age: 54 Gender: male BSA: 2.11 PROCEDURE(S) PERFORMED DC01-([id number])LHC/COR/LV CLINICAL PROFILE AND INDICATIONS Indications: Suspected CAD Heart Failure: None Stress/Imaging Stress Echocardiogram: Yes Result: Positive Low RiskStress Echocardiogram: Positive Low Risk CAD Presentations: No Sxs, no angina. CONCLUSIONS Non obstructive coronary arteries RECOMMENDATIONS Medical therapy DESCRIPTION OF PROCEDURE The patient arrived to the procedure lab. The risks and benefits of the procedure as well as a full description of our services here and current unavailability of surgical backup were fully explained to the patient and/or their significant other prior to the catheterization. The Timeout was completed, verifying the correct patient and procedure. The patient's procedural site was prepped and draped in the usual fashion. Local anesthetic was given subcutaneously to right radial region with Lidocaine 2%. Using a modified Seldinger technique, arterial access was obtained via the right radial artery, a 6Fr sheath was inserted. Right Coronary Artery selective angiography was then performed in multiple views using a 5 Fr. 4.0 [place] catheter. Left Coronary Artery selective angiography was performed in multiple views using a 5 Fr. 4.0 [place] catheter. Left Ventriculography was performed in [place] projection using a 5 Fr. [place] catheter. LV to AO pullback pressures were then recorded.The arterial sheath was pulled and a TR Band was applied for hemostasis CORONARY ANGIOGRAPHY DOMINANCE: Right Dominant LEFT HEART ASSESSMENT Left Ventricular Ejection Fraction: by LV Gram 60 % Normal LV wall motion Normal Left Ventricular systolic function LEFT MAIN: Angiographically normal LEFT ANTERIOR DESCENDING ARTERY: Mild luminal irregularities less than 30% DIAGONAL 1: Proximal - Mild luminal irregularities less than 30%, Mid - Moderate luminal irregularities up to 50% CIRCUMFLEX ARTERY: No significant disease noted RIGHT CORONARY ARTERY: Mild luminal irregularities less than 30% COMPLICATIONS No Complications PROCEDURE MEDICATIONS Fentanyl 50 mcg IV Versed 1 mg IV Oxygen: 2 L/min via nasal cannula Heparin given IA 09/05/2025 13:24:29 Verapamil 2.5mg, Ntg 100mcgs, 3000 units of Heparin given IA 09/05/2025 13:24:29 SUMMARY OF HEMODYNAMIC DATA Time AIR REST ECG 13:02:43 Art 133/77 (97) 13:22:41 AO 127/89 (108) SA 13:26:24 AO 119/82 (100) 13:27:38 LV 115/81, 23 13:32:51 LV 145/21, 25 13:33:45 LVp 132/15, 24 13:33:54 AOp 141/84 (108) 13:33:59 Valve Area (c P-P/ms Time Signed By Joe Zimmerman MD On 09/05/2025 1:45:51 PM Joe Zimmerman MD
== END | disposition home or self-care (01) ==
PROVIDERS: Student in an Organized Health Care Education/Training Program; PCP Family Medicine; Referring Provider Internal Medicine Cardiovascular Disease; Visit Provider Internal Medicine Cardiovascular Disease
DX: I25.10 Atherosclerotic heart disease of native coronary artery without angina pectoris (principal); Z95.1 Presence of aortocoronary bypass graft; Z79.82 Long term (current) use of aspirin; E78.5 Hyperlipidemia, unspecified; R06.09 Other forms of dyspnea; R94.39 Abnormal result of other cardiovascular function study
CPT/HCPCS: 36415; 71046; 80048; 85025; 85610; 85730; 93458; 99152; 99153; Q9967; C1769; C1894